=== PATIENT | female | born 1955 | race Caucasian/White ===

== ENCOUNTER 2017-12-24 09:22 | Emergency (ER) | payer BC ==
--- NOTE | 2017-12-24 09:48 | UC ---
Complaint Female HPI - HPI Summary HPI Summary: 62 yo female presents with urinary frequency, pressure, and slight burning since yesterday. She says that she has had UTIs in the past and has let them go for too long, which led to problems. She wants to check to see if she has a UTI today. She also mentions that she has a rash under her left arm that is mildly itchy - has been present for about 2 weeks. Hx of yeast under breast line and believes this is the same thing. Denies fever, chills, abdominal pain, n/v/d/c, flank pain, or back pain. - History Of Current Complaint Chief Complaint: UCGU Stated Complaint: URINARY ISSUE Time Seen by Provider: 12/24/17 09:48 Hx Obtained From: Patient Onset/Duration: Sudden Onset Timing: Constant Severity Initially: Mild Severity Currently: Mild Pain Intensity: 4 Pain Scale Used: 0-10 Numeric - Allergies/Home Medications Allergies/Adverse Reactions: Allergies Allergy/AdvReac Type Severity Reaction Status Date / Time cephalexin AdvReac GI Upset Verified 12/24/17 09:33 Home Medications: Home Medications Cholecalciferol TAB* [Vitamin D TAB*] 1,000 unit PO DAILY 12/24/17 [History Confirmed 12/24/17] Metoprolol Tartrate TAB* [Lopressor TAB*] 12.5 mg PO BID 12/24/17 [History Confirmed 12/24/17] celeCOXIB CAP* [CeleBREX CAP*] 200 mg PO DAILY 12/24/17 [History Confirmed 12/24] PMH/Surg Hx/FS Hx/Imm Hx Cardiovascular History: Hypertension - Surgical History Surgical History: Yes Surgery Procedure, Year, and Place: CSECTION X2 [facility]. WISDOM TEETH REMOVAL. HYSTERECTOMY 2000 [facility], LEFT KNEE REPLACEMENT 2014 - Family History Known Family History: Positive: Hypertension - Social History Occupation: Employed Full-time Lives: With Family Alcohol Use: None Substance Use Type: None Smoking Status (MU): Never Smoked Tobacco - Immunization History Most Recent Influenza Vaccination: 2013 Most Recent Tetanus Shot: WITHIN 10 YRS Most Recent Pneumonia Vaccination: NONE Review of Systems Constitutional: Negative Skin: Rash - Left axilla Respiratory: Negative Cardiovascular: Negative Gastrointestinal: Negative Genitourinary: Dysuria, Frequency, Urgency Neurovascular: Negative Neurological: Negative Psychological: Negative All Other Systems Reviewed And Are Negative: Yes Physical Exam - Summary Physical Exam Summary: GENERAL: NAD. Obese SKIN: Mildly erythematous circular rash under left axilla. No open sores or drainage. NECK: Supple. Nontender. No lymphadenopathy. CHEST: CTAB. No r/r/w. No accessory muscle use. Breathing comfortably and in no distress. CV: RRR. Without m/r/g. Pulses intact. Cap refill <2seconds ABDOMEN: Soft. NTTP. No distention or guarding. No CVA tenderness. Bowel sounds present NEURO: Alert. CN II-XII grossly intact. PSYCH: Age appropriate behavior. Triage Information Reviewed: Yes Vital Signs: Initial Vital Signs Temp 98.6 F 12/24/17 09:37 Pulse 91 12/24/17 09:37 Resp 18 12/24/17 09:37 BP 175/100 12/24/17 09:37 Pulse Ox 98 12/24/17 09:37 Laboratory Tests 12/24/17 09:58 POC Urine Color Yellow POC Urine Clarity Cloudy POC Urine pH 5.5 POC Ur Specif [place] 1.025 POC Urine Protein Trace A POC Ur Glucose (UA) Negative POC Urine Ketones Negative POC Urine Blood 3+ A POC Urine Nitrite Positive A POC Urine Bilirubin Negative POC Urine Urobilinogen 1.0 POC U Leukocyte Esteras 2+ A Vital Signs Reviewed: Yes Complaint Female Dx - Course Course Of Treatment: UA with signs of infection. Will treat with Bactrim and send for culture. Axilla rash appears to be yeast- rx for nystatin cream. - Differential Dx/Diagnosis Provider Diagnoses: UTI. Skin yeast infection left axilla Discharge - Sign-Out/Discharge Documenting (check all that apply): Patient Departure All imaging exams completed and their final reports reviewed: No Studies - Discharge Plan Condition: Stable Disposition: HOME Prescriptions: Nystatin CREAM* [Nystatin Cream*] 1 applic TOPICAL BID #1 tube Sulfamethox/Trimethoprim DS* [Bactrim DS 800/160 TAB*] 1 tab PO BID #10 tab Patient Education Materials: Urinary Tract Infection in Women (ED), Skin Yeast Infection (ED) Referrals: Maral Nava MD [Primary Care Provider] - Additional Instructions: If you develop a fever, shortness of breath, chest pain, new or worsening symptoms - please call your PCP or go to the ED. Your blood pressure was high at todays visit. Please see your primary provider within 4 weeks for recheck and re-evaluation. - Billing Disposition and Condition Condition: STABLE Disposition: Home
[2017-12-24 10:01] VITALS: BP 145/90
== END 2017-12-24 10:26 | disposition home or self-care (01) ==
LOC: UCEAST 09:22
DX: N39.0 Urinary tract infection, site not specified (principal); B37.2 Candidiasis of skin and nail; I10 Essential (primary) hypertension; Z88.3 Allergy status to other anti-infective agents
CPT/HCPCS: 81003; 87077; 87086; 87186; 99212; G0463

== ENCOUNTER 2018-04-10 15:11 | Emergency (ER) | payer BC ==
[2018-04-10 15:39] VITALS: BP 150/91
--- NOTE | 2018-04-10 16:24 | UC ---
Complaint Female HPI - HPI Summary HPI Summary: 62-year-old female comes to clinic today with a chief complaint of burning with urination and increased frequency. This started today. No fevers or chills. She does have some low back ache. Feels well otherwise. The symptoms remind her of urinary tract infection. She was he here an December 2017 and treated with Bactrim for 5 days and her symptoms returned within 3 weeks. She was then treated with Macrobid for 5 days successfully. - History Of Current Complaint Chief Complaint: UCGU Stated Complaint: UTI Time Seen by Provider: 04/10/18 15:44 Pain Intensity: 1 - Allergies/Home Medications Allergies/Adverse Reactions: Allergies Allergy/AdvReac Type Severity Reaction Status Date / Time cephalexin AdvReac GI Upset Verified 04/10/18 15:39 PMH/Surg Hx/FS Hx/Imm Hx Previously Healthy: Yes Cardiovascular History: Hypertension - Surgical History Surgical History: Yes Surgery Procedure, Year, and Place: [facility]. WISDOM TEETH REMOVAL. [facility]STERECTOMY 2000 [facility], LEFT KNEE REPLACEMENT 2014 - Family History Known Family History: Positive: None, Hypertension - Social History Alcohol Use: None Substance Use Type: None Smoking Status (MU): Never Smoked Tobacco - Immunization History Most Recent Influenza Vaccination: 2013 Most Recent Tetanus Shot: WITHIN 10 YRS Most Recent Pneumonia Vaccination: NONE Review of Systems All Other Systems Reviewed And Are Negative: Yes Constitutional: Positive: Negative Skin: Positive: Negative Eyes: Positive: Negative ENT: Positive: Negative Respiratory: Positive: Negative Cardiovascular: Positive: Negative Gastrointestinal: Positive: Negative Genitourinary: Positive: Dysuria, Frequency, Urgency Motor: Positive: Negative Neurovascular: Positive: Negative Musculoskeletal: Positive: Negative Neurological: Positive: Negative Psychological: Positive: Negative Is Patient Immunocompromised?: No Physical Exam Triage Information Reviewed: Yes Appearance: Well-Appearing, No Pain Distress, Well-Nourished Vital Signs: Initial Vital Signs Temp 97.4 F 04/10/18 15:37 Pulse 79 04/10/18 15:37 Resp 16 04/10/18 15:37 BP 150/91 04/10/18 15:37 Pulse Ox 98 04/10/18 15:37 Vital Signs Reviewed: Yes Eye Exam: Normal Eyes: Positive: Conjunctiva Clear Neck exam: Normal Neck: Positive: Supple Respiratory: Positive: Lungs clear, Normal breath sounds, No respiratory distress Cardiovascular: Positive: RRR Abdomen Description: Positive: Nontender, Soft, Other: - MILD TENDERNESS SUPRAPUBICLY. Negative: CVA Tenderness (R), CVA Tenderness (L) Musculoskeletal Exam: Normal Musculoskeletal: Positive: Strength Intact, ROM Intact Neurological Exam: Normal Neurological: Positive: Alert, Muscle Tone Normal Psychological Exam: Normal Psychological: Positive: Age Appropriate Behavior Skin Exam: Normal Complaint Female Dx - Differential Dx/Diagnosis Provider Diagnosis: UTI (urinary tract infection) Discharge - Sign-Out/Discharge Documenting (check all that apply): Patient Departure All imaging exams completed and their final reports reviewed: No Studies - Discharge Plan Condition: Stable Disposition: HOME Prescriptions: Amoxicillin/Clavulanate TAB* [Augmentin TAB 875*] 875 mg PO BID #14 tab Patient Education Materials: Urinary Tract Infection in Women (ED) Referrals: Maral Nava MD [Primary Care Provider] - Additional Instructions: FOLLOW UP WITH YOUR DOCTOR IF NOT COMPLETELY IMPROVED. GET RECHECKED FOR ANY WORSENING OF YOUR CONDITION; PAIN, FEVER, YOU FEEL ILL OR QUESTIONS OR CONCERNS. - Billing Disposition and Condition Condition: STABLE Disposition: Home
== END 2018-04-10 16:30 | disposition home or self-care (01) ==
LOC: UCEAST 15:11
DX: N39.0 Urinary tract infection, site not specified (principal)
CPT/HCPCS: 81003; 87086; 99212; G0463

== ENCOUNTER 2019-04-11 12:49 | Emergency (ER) | payer BC ==
[2019-04-11 13:03] VITALS: BP 161/90
--- NOTE | 2019-04-11 13:22 | UC ---
Respiratory Complaint HPI - HPI Summary HPI Summary: patient has worsening sinus pain and congestion cough and chest congestion with yellow sputum - History of Current Complaint Chief Complaint: UCRespiratory Stated Complaint: CHEST CONGESTION COUGH Time Seen by Provider: 04/11/19 13:21 Hx Obtained From: Patient ?: No Onset/Duration: Sudden Onset, Lasting Days - 7, Still Present Timing: Constant Pain Intensity: 0 Character: Cough: Productive, Sputum Description: - thick yellow Aggravating Factors: Deep Breaths Alleviating Factors: Upright Position Associated Signs And Symptoms: Positive: URI, Nasal Congestion - Allergies/Home Medications Allergies/Adverse Reactions: Allergies Allergy/AdvReac Type Severity Reaction Status Date / Time cephalexin AdvReac GI Upset Verified 04/11/19 13:03 PMH/Surg Hx/FS Hx/Imm Hx Previously Healthy: No Cardiovascular History: Hypertension - Surgical History Surgical History: Yes Surgery Procedure, Year, and Place: [facility]. WISDOM TEETH REMOVAL. [facility]STERECTOMY 2000 [facility], LEFT KNEE REPLACEMENT 2014 - Family History Known Family History: Positive: None, Hypertension - Social History Occupation: Employed Full-time Lives: With Family Alcohol Use: None Substance Use Type: None Smoking Status (MU): Never Smoked Tobacco - Immunization History Most Recent Influenza Vaccination: 2013 Most Recent Tetanus Shot: WITHIN 10 YRS Most Recent Pneumonia Vaccination: NONE Review of Systems All Other Systems Reviewed And Are Negative: Yes Constitutional: Positive: Negative Skin: Positive: Rash Eyes: Positive: Negative ENT: Positive: Sore Throat, Nasal Discharge, Sinus Congestion Respiratory: Positive: Cough Cardiovascular: Positive: Negative Gastrointestinal: Positive: Negative Genitourinary: Positive: Negative Motor: Positive: Negative Neurovascular: Positive: Negative Musculoskeletal: Positive: Negative Neurological: Positive: Negative Psychological: Positive: Negative Is Patient Immunocompromised?: No Physical Exam Triage Information Reviewed: Yes Appearance: No Pain Distress, Ill-Appearing - mild, Obese Vital Signs: Initial Vital Signs Temp 97 F 04/11/19 13:01 Pulse 97 04/11/19 13:01 Resp 16 04/11/19 13:01 BP 161/90 04/11/19 13:01 Pulse Ox 97 04/11/19 13:01 Vital Signs Reviewed: Yes Eye Exam: Normal Eyes: Positive: Conjunctiva Clear ENT Exam: Normal ENT: Positive: Normal ENT inspection, Hearing grossly normal, Pharynx normal, TMs normal, Sinus tenderness, Uvula midline. Negative: Nasal congestion, Trismus, Muffled voice, Hoarse voice Dental Exam: Normal Neck exam: Normal Neck: Positive: Supple, Nontender, No Lymphadenopathy Respiratory Exam: Normal Respiratory: Positive: Chest non-tender, Lungs clear, Normal breath sounds, No respiratory distress, No accessory muscle use Cardiovascular Exam: Normal Cardiovascular: Positive: RRR, No Murmur, Pulses Normal, Brisk Capillary Refill Musculoskeletal Exam: Normal Musculoskeletal: Positive: Strength Intact, ROM Intact, No Edema Neurological Exam: Normal Neurological: Positive: Alert, Muscle Tone Normal Psychological Exam: Normal Skin Exam: Normal Respiratory Course/Dx - Course Course Of Treatment: increase fluids, tessalon, flonase, zithromax follow with pcp rpn - Differential Dx/Diagnosis Provider Diagnosis: Hypertension, Bronchitis, URI (upper respiratory infection) Discharge ED - Sign-Out/Discharge Documenting (check all that apply): Patient Departure All imaging exams completed and their final reports reviewed: No Studies - Discharge Plan Condition: Stable Disposition: HOME Prescriptions: Azithromycin TAB* [Zithromax TAB (Z-ANEUDY) 250 mg #6 tabs] 2 tab PO .TODAY, THEN 1 DAILY #1 aneudy Benzonatate CAP* [Tessalon 100 MG CAP*] 1 - 2 mg PO TID PRN #40 cap PRN Reason: Cough Fluticasone NASAL SPRAY 50MCG* [Flonase NASAL SPRAY 50MCG*] 2 spray BOTH NARES DAILY #1 btl Patient Education Materials: Acute Bronchitis (ED), Hypertension (ED), How to Use Nasal Secretary (ED) Referrals: Maral Nava MD [Primary Care Provider] - 1 Week - Billing Disposition and Condition Condition: STABLE Disposition: Home - Attestation Statements Provider Attestation: I was available for consult. This patient was seen by the CHRISTIE. The patient was not presented to, seen by, or examined by me. -Monae
== END 2019-04-11 13:57 | disposition home or self-care (01) ==
LOC: UCEAST 12:49
DX: J06.9 Acute upper respiratory infection, unspecified (principal); J40 Bronchitis, not specified as acute or chronic; I10 Essential (primary) hypertension; Z88.1 Allergy status to other antibiotic agents
CPT/HCPCS: 99212; G0463